=== PATIENT | female | born 1955 | race African-American/Black ===

== ENCOUNTER 2018-10-14 09:23 | Emergency (ER) | payer SELFPAY ==
[~2018-10-14] VITALS: Ht 175.3 cm; Wt 86.2 kg
[~2018-10-14 09:23] MED LIST: ACET-1304; ASPI81CH43
[2018-10-14 09:36] VITALS: BP 129/57
== END 2018-10-14 10:03 | disposition home or self-care (01) ==
LOC: ER 09:23
DX: L20.9 Atopic dermatitis, unspecified (principal); L98.8 Other specified disorders of the skin and subcutaneous tissue; J44.9 Chronic obstructive pulmonary disease, unspecified; F17.210 Nicotine dependence, cigarettes, uncomplicated; Z98.51 Tubal ligation status; Z88.0 Allergy status to penicillin